=== PATIENT | female | born 1945 | race Caucasian/White ===

== ENCOUNTER → 2017-04-10 | Outpatient (CLI) | payer OTHER ==
[~2017-04-10] VITALS: Ht 167.6 cm; Wt 60.8 kg
[~2017-04-10] MED LIST: ASPIR 8181 M1 PO; CATAPRES0.2 MG PO; CELEXA10 MG PO; LIPITOR40 MG PO; NORVASC10 MG PO; TOPROL XL100 MG PO; ZYLOPRIM300 MG PO
[2017-04-10 08:52] LABS: BASOPHIL COUNT 0.1 K/uL (0-0.1); EOSINOPHIL (%) 2.4 % (0-5); EOSINOPHIL COUNT 0.2 K/uL (0-0.3); HEMATOCRIT 45.3 % (36.0-46.0); IMMATURE GRANULOCYTE (%) 0.3 % (0.0-0.7); INSTRUMENT ABS NEUTROPHIL CT 4.6 K/uL; LYMPHOCYTE COUNT 1.6 K/uL (1.0-2.8); MCH 31.9 PG (29.0-34.0); MCHC 33.8 G/DL (30.0-36.0); MCV 94.6 FL (83-99); MEAN PLAT.VOLUME 10.7 uM^3 (9.5-12.4); MONOCYTE (%) 8.7 % (3-12); MONOCYTE COUNT 0.6 K/uL (0-0.8); NEUTROPHIL (%) 65.4 % (45-76); NEUTROPHIL COUNT 4.6 K/uL (1.8-6.4); PLATELET COUNT 183 K/uL (156-360); RBC DIS.WIDTH-SD 44.9 % (39-53); RED BLOOD COUNT 4.79 M/uL (3.80-5.20)
[2017-04-10 08:59] LABS: PROTHROMBIN TIME 10.4 SEC (10.2-12.9)
[2017-04-10 09:01] LABS: PTT 32.3 SEC (25-37)
[2017-04-12 16:14] LABS: Flow Number of Markers 22 (()); Flow Spec Viability 96 % (()); Flow Specimen Type BONE MARROW (())
== END | disposition home or self-care (01) ==
LOC: OPR 08:22 → EDSTATUS 09:00
PROVIDERS: Internal Medicine Medical Oncology; Radiology Diagnostic Radiology
DX: C82.90 Follicular lymphoma, unspecified, unspecified site (principal); Z79.82 Long term (current) use of aspirin; I73.9 Peripheral vascular disease, unspecified; I70.0 Atherosclerosis of aorta; J44.9 Chronic obstructive pulmonary disease, unspecified; F17.200 Nicotine dependence, unspecified, uncomplicated
CPT/HCPCS: 38221; G0364; 77012; 85025; 85610; 85730; 85999; J3010